=== PATIENT | female | born 1960 | race African-American/Black ===

== ENCOUNTER 2019-02-14 21:55 | Inpatient (IN) | payer MEDICARE ==
[~2019-02-14 21:55] MED LIST: ISOVUE-370 76%-LOCM 1 ML ONE
--- NOTE | 2019-02-14 23:16 | CT ---
CT ABDOMEN AND PELVIS WITH IV CONTRAST: 02/14/19 HISTORY: Fever, diarrhea, nausea with no vomiting. FINDINGS: The lung bases are clear. The liver demonstrates decreased attenuation compared to the spleen consist ent with fatty infiltration. No calcified gallstones are seen. The spleen, pancreas, and adrenal glan ds are normal. There are cysts in the right kidney. There is milk of calcium a 3.4 cm left parapelvic cyst. No hydroureteronephrosis otherwise seen on either side. No calculi is seen in the ureters or t he urinary bladder. No free air, free fluid, or lymphadenopathy seen in the abdomen or pelvis. A normal appearing appendi x is seen. The small bowel loops are not abnormally dilated. There are vascular calcifications without evidence of aneurysmal dilatation of the abdominal aorta. T here are degenerative changes in the spine. The pt is post hysterectomy. IMPRESSION: 1. Fatty liver. 2. Right renal cysts. 3. Left parapelvic cyst with milk of calcium. POS: [facility]
[2019-02-14] MEDS ORDERED: Ondansetron PF 4 MG/2 ML Vial ONE (23:25)
[2019-02-15 00:42] LABS: ALT (SGPT) 234 U/L (8-55); AST (SGOT) 494 U/L (5-34); Albumin 3.5 g/dL (3.5-5.0); Alkaline Phosphatase 93 U/L (40-150); Anion Gap 16 mmol/L (10-20); BUN (Urea Nitrogen) 10 mg/dL (9.8-20.1); Bilirubin, Total 0.5 mg/dL (0.2-1.2); Calc. Creatinine Clearance 0 mL/min (70-130); Calcium 7.7 mg/dL (7.8-10.44); Carbon Dioxide 19 mmol/L (22-29); Chloride 106 mmol/L (98-107); Estimated GFR-MDRD Greater than 90; Globulin 3.5 g/dL (2.4-3.5); Glucose 151 mg/dL (70-105); Potassium 3.6 mmol/L (3.5-5.1); Sodium 137 mmol/L (136-145)
[2019-02-15 00:43] LABS: Acetaminophen Less than 6.0 mcg/mL (10.0-30.0); Alcohol Less than 10 mg/dL (Less than 10); Salicylate Less than 8.0 mg/dL (15.0-30.0)
[2019-02-15] MEDS ORDERED: Piperacillin/Tazobactam 3.375 GM VIAL ONE (01:34)
[2019-02-15] MEDS ORDERED: Ondansetron ODT 4 MG TAB SL PRN (04:50)
[2019-02-15] MEDS ORDERED: Sodium Chloride 0.9% 1,000 ML IV SCH ×2 (04:50→07:45)
[2019-02-15] MEDS ORDERED: Ondansetron PF 4 MG/2 ML Vial IVP PRN ×2 (04:50→07:32)
[2019-02-15] MEDS ORDERED: Ketorolac Tromethamine 30 MG/ML VIAL IVP SCH (06:00)
[2019-02-15] MEDS ORDERED: Loratadine 10 MG TAB PO PRN (07:32)
[2019-02-15] MEDS ORDERED: Zolpidem Tartrate 5 MG TAB PO PRN (07:32)
[2019-02-15] MEDS ORDERED: Ondansetron ODT 4 MG TAB PO PRN (07:32)
[2019-02-15] MEDS ORDERED: Cepastat Lozenges 1 LOZ PO PRN (07:32)
[2019-02-15] MEDS ORDERED: Senokot S 8.6-50 MG TAB PO PRN (07:32)
[2019-02-15] MEDS ORDERED: hydrALAZINE 20 MG/ML VIAL SLOW IVP PRN (07:32)
[2019-02-15] MEDS ORDERED: Calcium Carbonate 500 MG ChewTAB PO PRN (07:32)
[2019-02-15] MEDS ORDERED: Bisacodyl 10 MG SUPP PR PRN (07:32)
[2019-02-15] MEDS ORDERED: Meclizine HCl 25 MG TAB PO PRN (07:32)
[2019-02-15] MEDS ORDERED: Dextrose 5% in Water 1,000 ML IV PRN (07:32)
[2019-02-15] MEDS ORDERED: Acetaminophen 325 MG TAB PO PRN (07:32)
[2019-02-15] MEDS ORDERED: HumaLOG 300 UNITS/3 ML VIAL SC PRN ×2 (07:32)
[2019-02-15] MEDS ORDERED: Diabetic Tussin 200 MG/10 ML UDCUP PO PRN (07:32)
[2019-02-15] MEDS ORDERED: Eucerin (Mineral Oil/Petrolatum,White) 30 gm Jar TOP PRN (07:32)
[2019-02-15] MEDS ORDERED: Artificial Tear Sol 15 ML BOT EA EYE PRN (07:32)
[2019-02-15] MEDS ORDERED: Sodium Chloride 0.65% Nasal 44 ML BOT EA NARE PRN (07:32)
[2019-02-15] MEDS ORDERED: Loperamide HCl 2 MG CAP PO PRN (07:32)
[2019-02-15] MEDS ORDERED: Dextrose 50% Abboject 50 ML SYRINGE SLOW IVP PRN (07:32)
[2019-02-15] MEDS: Doxycycline 100 MG CAP PO SCH ×2 (08:41→21:58)
[2019-02-15] MEDS: Famotidine 20 MG TAB PO SCH ×2 (08:41→21:58)
[2019-02-15] MEDS: cefTRIAXone\\ROCEPHIN 1 GM in Sodium Chloride 0.9% 100 ML IVPB SCH (08:41)
[2019-02-15] MEDS: Enoxaparin Sodium 40 MG/0.4 ML SYRINGE SC SCH (08:42)
[2019-02-15] MEDS: Aspirin 81 mg Enteric Coated Tablet PO SCH (08:42)
[2019-02-15 09:27] LABS: HBCM Index 0.05 S/CO (0-0.79); HBSAg Index 0.32 S/CO (0-0.99); HIV (1/2) Antibody/Antigen Non-Reactive (NonReactive); HIV 1/2 INDEX 0.16 S/CO (<1.00); Hep A IgM AB Non-Reactive (NonReactive); Hep A IgM S/CO 0.33 S/CO (0-0.79); Hep B Surf Ag Non-Reactive S/CO (NonReactive); Hep C IgG Ab Non-Reactive (NonReactive); Hep C Index 0.11 S/CO (0-0.79); Hepatitis B Core IgM Abs Non-Reactive (NonReactive)
[2019-02-15 12:28] VITALS: BMI 32.5
[2019-02-15] MEDS: NS 0.9% w/ 20 MEQ KCL 1,000 ML/1,000 ML BAG IV SCH ×2 (13:04→16:24)
--- NOTE | 2019-02-15 13:43 | HP ---
PRIMARY CARE PHYSICIAN: Neftaly El MD REASON FOR ADMISSION: Sepsis. HISTORY OF PRESENT ILLNESS: A 58-year-old female who initially went to [facility] for evaluation of fever. The patient reports that she has fever since February 07, 2019. She reports that all symptoms started with diarrhea. She was having liquidy loose bowel movement without any pus or blood. She was not having any abdominal pain. She was feeling nausea, but no vomiting. She was also having fever with chills intermittently, since then the major temperature at home, which was maximum 103. She was trying Tylenol everyday basis for her fever, but her fever was not responding. The patient was also evaluated by her primary care physician. She went to emergency room yesterday because she was feeling more bad and that is why she was evaluated at [facility], where she was found with elevated LFT. The patient had abdominal ultrasound and CT abdomen and pelvis, which did not show any acute process other than fatty liver. The patient denies any right upper quadrant pain. She denies any belching, dyspepsia, or fullness in the stomach. She denies any constipation. She denies any melena or hematochezia. She denies any recent travel or sick exposure. She denies any skin rash or swelling. REVIEW OF SYSTEMS: CONSTITUTIONAL: Negative for weight loss or gain, ability to conduct usual activities. SKIN: Negative for rash, itching. EYES: Negative for double vision, pain. ENT/MOUTH: Negative for nose bleeding, neck stiffness, pain, tenderness. CARDIOVASCULAR: Negative for palpitations, dyspnea on exertion, orthopnea. RESPIRATORY: Negative for shortness of breath, wheezing, cough, hemoptysis, fever or night sweats. GASTROINTESTINAL: Negative for poor appetite, abdominal pain, heartburn, nausea, vomiting, constipation, or diarrhea. GENITOURINARY: Negative for urgency, frequency, dysuria, nocturia. MUSCULOSKELETAL: Negative for pain, swelling. NEUROLOGIC/PSYCHIATRIC: Negative for anxiety, depression. ALLERGY/IMMUNOLOGIC: Negative for skin rash, bleeding tendency. Please see my HPI for pertinent positives and negatives. All other review of systems reviewed and negative except as mentioned in HPI. PAST MEDICAL HISTORY: Diabetes type 2 and dyslipidemia. PAST SURGICAL HISTORY: Right ear surgery as well as her left ear surgery with tube placement, x2, and hysterectomy. PAST PSYCHIATRIC HISTORY: Reviewed and negative. ALLERGIES: NO KNOWN DRUG ALLERGIES. SOCIAL HISTORY: The patient lives at home with family. No history of tobacco, alcohol, or illicit drug abuse. CURRENT HOME MEDICATIONS: 1. Metformin 500 mg twice daily. 2. Zocor 40 mg p.o. at bedtime. 3. Bactrim DS one tablet twice daily. 4. Meclizine 25 mg 3 times daily. 5. Zoloft 4 mg as needed. 6. Aspirin 81 mg p.o. daily. EMERGENCY ROOM COURSE: The patient has received Zosyn, IV fluid, and Zofran. FAMILY HISTORY: No family history of coronary artery disease, stroke, or cancer. PHYSICAL EXAMINATION: VITAL SIGNS: On arrival, blood pressure 121/89, pulse 90, respiratory rate 18, temperature 99, and saturation 95% on room air. Weight 202 pounds. While in the hospital, the patient was having maximum temperature 102.8. GENERAL: The patient is currently alert, awake, no obvious acute distress. HEENT: Head; normocephalic, atraumatic. Eyes; pupils round, reactive to light. Extraocular muscle intact. ENT, oropharynx within normal limits. Moist mucous membranes. No oral lesion. No pharyngeal erythema. No exudate. NECK: Supple. No JVD. No thyromegaly. No carotid bruit. No jugular venous distention. LUNGS: Clear to auscultation without any rhonchi or rales. CARDIAC: S1, S2. Regular without any murmur. ABDOMEN: Soft and benign without any tenderness. No organomegaly. No Cosme sign. No suprapubic tenderness. BACK: Unremarkable. No CVA tenderness. EXTREMITIES: Upper extremities, passive movement of all joints are normal. Lower extremities, no edema. Good distal pulsation. SKIN: No skin rash. HEMATOLOGICAL SYSTEM: No lymphadenopathy. NEUROLOGIC: Nonfocal examination. SIGNIFICANT LABS: Stool for infection workup including rapid parasite screen, Campylobacter, Escherichia coli O157, and shiga toxin negative. Influenza A and B negative. CBC; WBC 2.1, hemoglobin 10.4, platelets 321 with bandemia. INR 1.0. BMP; sodium 131, potassium 3.9, chloride 98, carbon dioxide 23, BUN 13, creatinine 0.81, glucose 183, and calcium 8.1. LFT; AST 689, ALT 279, alkaline phosphatase 102, albumin 3.9. Lactic acid 1.1. Urinalysis, leukocyte esterase small. Serum drug screen negative. Hepatitis profile negative. ASSESSMENT AND PLAN: Impression: 1. Sepsis. Source of infection is unknown. The patient has fever of unknown origin for about 1 week. The patient's stool study is negative for any infection. Her urinalysis is not showing any classic evidence of infection, but she does have suspected calculus in dilated left kidney. The patient does not have any CVA tenderness. Her chest x-ray is not obtained which we will obtain today, though the patient does not have any respiratory symptoms. At this point, we will consult Dr. Ott, infectious doctor for assisting management. We will follow up on blood and urine culture results. Meanwhile, we will start with IV fluid 100 mL/h and Rocephin and doxycycline. 2. Diabetes type 2. We will continue with insulin as per sliding scale protocol. Diabetic diet will be given. 3. Dyslipidemia. We will hold on statin therapy because of abnormal LFT. 4. Deep venous thrombosis prophylaxis. Lovenox 40 mg subcu daily. 5. GI prophylaxis. Pepcid 20 mg p.o. b.i.d. 6. Hypokalemia. We will replace potassium with IV fluid. 7. Obesity with BMI 32. Dietary education given. Weight loss education given. CODE STATUS: The patient is full code. The patient does not have any surrogate decision maker. DISPOSITION PLAN: Based on clinical course, we are expecting the patient's stay in hospital more than 2 midnights. Plan of care discussed with the patient in detail. Job ID: [id number]
[2019-02-15 16:31] LABS: Syphilis Antibody Nonreactive (Nonreactive); Syphilis Antibody Index 0.08 S/CO (<1.00 Non-Reactive)
--- NOTE | 2019-02-15 23:29 | CON ---
DATE OF CONSULTATION: 02/15/2019 REASON FOR CONSULTATION: Fever and abnormal liver function tests. HISTORY OF PRESENT ILLNESS: A 58-year-old patient who has a history of type 2 diabetes and hyperlipidemia, presented to the emergency room initially on February 10 with fever 102, weakness, nausea, and one episode of loose stool. She was having some aches and pains and had been taking Tylenol at home. She also has a history of "sebaceous cysts" in the upper back which were reportedly drained spontaneously over the past few days. This had been managed with Bactrim and she had been scheduled for excision of the cyst. The initial ER visit showed normal temperatures throughout. She appeared in no distress. There is some tenderness in the abdomen, mostly in the epigastric region. She had a diagnosis of vertigo, had been given Levaquin and Rocephin 1 dosage and was also prescribed Zofran and meclizine and discharged home. Four days later, she is back in the emergency room pretty much of the same symptoms with ongoing fevers. This time, diarrhea has become more pronounced and continued to take Tylenol and apparently a pretty heavy dosing schedule certainly more than the 4 g per day recommended. At this time, there is evidence of elevated liver function tests. [facility] was contacted and she was given N-acetylcysteine and the patient was transferred. She was then seen at the ER at the [facility] and admitted. Since admission, she has been given IV Rocephin and she has noticed overall improvement and diarrhea has subsided. She is not vomiting anymore, unable to tolerate fluids and food for the first time. No headaches. No visual symptoms, sore throat, odynophagia, or dysphagia. No cough, sputum production, or chest pain. The abdominal pain has improved. Diarrhea has subsided. No back pain. No joint symptoms or skin disorder. PAST MEDICAL HISTORY: Type 2 diabetes and hyperlipidemia. PAST SURGICAL HISTORY: and hysterectomy. SOCIAL HISTORY: Never smoker. No alcoholic beverage use. ALLERGIES: NONE. CURRENT MEDICATIONS: 1. Tylenol has been prescribed again. 2. Ecotrin. 3. Dulcolax. 4. Ceftriaxone. 5. Enoxaparin. 6. Pepcid. 7. Apresoline. 8. Insulin. 9. Loratadine. 10. Ondansetron. 11. Potassium. 12. Zolpidem. PHYSICAL EXAMINATION: VITAL SIGNS: T-max 102.8, she is now 98.5, blood pressure 112/66, pulse 82, respirations 16. SKIN: Shows few areas with telangiectases in the lower extremities. HEENT: No lymphadenopathy. Ocular movements conjugate. Sclerae white. Pupils are equal. Conjunctivae normal. Oral cavity is not remarkable. NECK: Supple. No jugular vein distention. No carotid bruits. No thyromegaly. LUNGS: Symmetric. Clear breath sounds. HEART: S1 and S2, regular rate. No S3 or S4. ABDOMEN: Soft, not distended or tender. No ascites. No bladder distention. EXTREMITIES: Moves extremities equally. Strength is preserved. Cognitive function appears to be preserved. LABORATORY DATA: Sodium 137, creatinine 0.77, calcium 7.7. AST has decreased from 689 to 494, ALT has decreased from 279 to 234. Bilirubin and alkaline phosphatase have been normal throughout. CK was 113, albumin 3.5. The salicylate, acetaminophen, and plasma alcohol level were undetectable. Hepatitis serologies , syphilis serology, and HIV serology are nonreactive. Abdomen and pelvis CT with fatty liver, renal cysts, and calculus in the distal left renal ginna, nonobstructing. No hydronephrosis was noted. She had a previous MRI from 2016, which showed extensive white matter signal alteration in bilateral cerebral hemispheres. In that opportunity, the possibility of multiple sclerosis was considered. ASSESSMENT: 1. Type 2 diabetes. 2. Febrile illness with diarrhea. 3. Excessive use of acetaminophen for management of symptoms related to this acute illness with concern for hepatotoxicity. 4. Abnormal liver function tests with improvement. 5. Inflamed sebaceous cyst in the back which has drained. DISCUSSION: Differential diagnosis includes transient viral illness either respiratory or, more likely, GI tract (for example: Norovirus infection), which led to the use of excessive amounts of acetaminophen which led to hepatotoxicity and precipitated the current admission. The other possibilities would be bacteremia , particularly associated with the inflamed sebaceous cyst. Other gastrointestinal processes are not likely and the testing has been negative for it. No evidence of other intraabdominal or respiratory tract inflammatory process. We would recommend discontinuation of acetaminophen that has been still used per prescribed in the orders and we will monitor cultures. If they remain negative, eventually discontinue Rocephin, and we will submit respiratory virus PCR panel. Job ID: [id number] [facility]
[2019-02-16] MEDS: NS 0.9% w/ 20 MEQ KCL 1,000 ML/1,000 ML BAG IV SCH ×3 (04:39→22:12)
[2019-02-16] MEDS: cefTRIAXone\\ROCEPHIN 1 GM in Sodium Chloride 0.9% 100 ML IVPB SCH (08:39)
[2019-02-16] MEDS: Doxycycline 100 MG CAP PO SCH ×2 (08:40→22:11)
[2019-02-16] MEDS: Famotidine 20 MG TAB PO SCH ×2 (08:41→22:11)
[2019-02-16] MEDS: Aspirin 81 mg Enteric Coated Tablet PO SCH (08:41)
[2019-02-16] MEDS: Enoxaparin Sodium 40 MG/0.4 ML SYRINGE SC SCH (08:42)
[2019-02-16 11:12] LABS: Hemoglobin 9.8 g/dL (12.0-16.0); Mean Corpuscular HGB CONC 30.8 g/dL (32.0-36.0); Mean Corpuscular Hemoglobin 27.7 pg (27.0-31.0); Mean Corpuscular Volume 89.8 fL (78.0-98.0); Mean Platelet Volume 7.5 fL (7.4-10.4); Platelet Count 419 thou/uL (130-400); RBC Distribution Width 13.3 % (11.5-14.5); Red Blood Cell (RBC) Count 3.54 mill/uL (4.20-5.40); White Blood Cell (WBC) Count 3.9 thou/uL (4.8-10.8)
[2019-02-16 11:26] LABS: ALT (SGPT) 190 U/L (8-55); AST (SGOT) 364 U/L (5-34); Albumin 3.6 g/dL (3.5-5.0); Alkaline Phosphatase 96 U/L (40-150); Anion Gap 14 mmol/L (10-20); BUN (Urea Nitrogen) Less than 4 mg/dL (9.8-20.1); Bilirubin, Total 0.5 mg/dL (0.2-1.2); Calc. Creatinine Clearance 127 mL/min (70-130); Calcium 8.2 mg/dL (7.8-10.44); Carbon Dioxide 21 mmol/L (22-29); Chloride 106 mmol/L (98-107); Estimated GFR-MDRD Greater than 90; Globulin 3.6 g/dL (2.4-3.5); Glucose 136 mg/dL (70-105); Potassium 3.7 mmol/L (3.5-5.1); Protein, Total 7.2 g/dL (6.0-8.3); Sodium 137 mmol/L (136-145)
[2019-02-16 11:43] LABS: Hypochromia SLIGHT = 6-15 cells (100X) (0-5/hpf); Lymphocytes 63 % (21-51); MDiff Complete? YES; Monocytes 17 % (0-10); Neutrophil 17 % (42-75); Platelet Morphology Comment Appears Decreased; Reactive Lymphocytes 3 % (0-10)
--- NOTE | 2019-02-16 12:43 | PDOC.PN ---
- Subjective Encounter Start Date: 02/16/19 Encounter Start Time: 08:00 Patient seen and examined. No new complaints. No overnight events - Objective Resuscitation Status - Order Detail: 02/15/19 07:28 Resuscitation Status Routine Resuscitation Status: FULL: Full Resuscitation MAR Reviewed: Yes Vital Signs & Weight: Vital Signs (12 hours) Temp Pulse Resp BP Pulse Ox 02/16/19 11:00 98.8 F 80 18 130/71 02/16/19 07:00 99.4 F 81 14 114/72 96 02/16/19 05:35 99.5 F 82 16 116/68 02/16/19 01:45 99.0 F 85 18 108/69 96 Weight Admit Weight 202 lb Weight 202 lb I&O: 02/15/19 02/16/19 02/17/19 06:59 06:59 06:59 Intake Total 602 2230 Balance 602 2230 Result Diagrams: 02/16/19 10:52 02/16/19 10:52 Additional Labs: Accuchecks 02/16/19 02/16/19 02/15/19 10:53 07:38 20:23 POC Glucose 132 H 119 H 140 H 02/15/19 16:21 POC Glucose 134 H Phys Exam - Physical Examination Constitutional: NAD HEENT: PERRLA, moist MMs, sclera anicteric Neck: no JVD, supple Respiratory: no wheezing, no rales, no rhonchi Cardiovascular: RRR, no significant murmur, no rub Gastrointestinal: soft, non-tender, no distention, positive bowel sounds Musculoskeletal: no edema, pulses present Neurological: non-focal, normal sensation, moves all 4 limbs Lymphatic: no nodes Psychiatric: normal affect, A&O x 3 Skin: no rash, normal turgor Dx/Plan (1) Abnormal LFTs Code(s): R94.5 - ABNORMAL RESULTS OF LIVER FUNCTION STUDIES Status: Acute (2) Sepsis Code(s): A41.9 - SEPSIS, UNSPECIFIED ORGANISM Status: Acute (3) Diabetes type 2, controlled Code(s): E11.9 - TYPE 2 DIABETES MELLITUS WITHOUT COMPLICATIONS Status: Chronic (4) Dyslipidemia Code(s): E78.5 - HYPERLIPIDEMIA, UNSPECIFIED Status: Chronic (5) Obesity (BMI 30.0-34.9) Code(s): E66.9 - OBESITY, UNSPECIFIED Status: Chronic - Plan cont current plan of care * medication reviewed as below * symptomatic treatment * follow culture. Review of Systems - Review of Systems ENT: negative: Ear Pain, Ear Discharge, Nose Pain, Nose Discharge, Nose Congestion, Mouth Pain, Mouth Swelling, Throat Pain, Throat Swelling, Other Respiratory: negative: Cough, Dry, Shortness of Breath, Hemoptysis, SOB with Excertion, Pleuritic Pain, Sputum, Wheezing Cardiovascular: negative: chest pain, palpitations, orthopnea, paroxysmal nocturnal dyspnea, edema, light headedness, other Gastrointestinal: negative: Nausea, Vomiting, Abdominal Pain, Diarrhea, Constipation, Melena, Hematochezia, Other Genitourinary: negative: Dysuria, Frequency, Incontinence, Hematuria, Retention , Other Musculoskeletal: negative: Neck Pain, Shoulder Pain, Arm Pain, Back Pain, Hand Pain, Leg Pain, Foot Pain, Other - Medications/Allergies Allergies/Adverse Reactions: Allergies Allergy/AdvReac Type Severity Reaction Status Date / Time No Known Allergies Allergy Verified 02/15/19 03:35 Medications: Current Medications Acetaminophen (Tylenol) 650 mg PO Q4H PRN PRN Reason: Headache/Fever/Mild Pain (1-3) Artificial Tears (Liquitears 15ml Bottle) 2 drop EA EYE PRN PRN PRN Reason: Dry Eyes Aspirin (Ecotrin) 81 mg PO DAILY [facility] Last Admin: 02/16/19 08:41 Dose: 81 mg Bisacodyl (Dulcolax) 10 mg [place] DAILYPRN PRN PRN Reason: Constipation Calcium Carbonate (Tums) 1,000 mg PO Q4H PRN PRN Reason: Heartburn or Indigestion Dextrose/Water (Dextrose 50%) 25 gm SLOW IVP PRN PRN PRN Reason: Hypoglycemia Doxycycline Hyclate (Vibramycin) 100 mg PO BID [facility] Last Admin: 02/16/19 08:40 Dose: 100 mg Enoxaparin Sodium (Lovenox) 40 mg SC 0900 [facility] Last Admin: 02/16/19 08:42 Dose: 40 mg Famotidine (Pepcid) 20 mg PO BID [facility] Last Admin: 02/16/19 08:41 Dose: 20 mg Glucagon (Glucagon) 1 mg IM PRN PRN PRN Reason: Hypoglycemia Guaifenesin (Robitussin Sf) 200 mg PO Q4H PRN PRN Reason: Cough Hydralazine HCl (Apresoline) 10 mg SLOW IVP Q4H PRN PRN Reason: SBP > 180 and HR < 70 Ceftriaxone Sodium 1 gm/ (Sodium Chloride) 100 mls @ 200 mls/hr IVPB Q24HR [facility] Last Admin: 02/16/19 08:39 Dose: 100 mls Dextrose/Water (D5w) 1,000 mls @ 0 mls/hr IV .Q0M PRN PRN Reason: Hypoglycemia Potassium Chloride/Sodium Chloride (Ns 0.9% W/ 20 Meq Kcl) 1,000 ml in 1,000 mls @ 75 mls/hr IV .[id number] [facility] Last Admin: 02/16/19 10:19 Dose: Not Given Insulin Human Lispro (Humalog) 0 units SC .MODERATE SLIDING SC PRN PRN Reason: Moderate Correctional Scale Last Admin: 02/15/19 11:38 Dose: 2 units Insulin Human Lispro (Humalog) 0 units SC .BEDTIME SLIDING SC PRN PRN Reason: Bedtime Correctional Scale Loperamide HCl (Imodium) 2 mg PO PRN PRN PRN Reason: Diarrhea/Loose Stools Loratadine (Claritin) 10 mg PO DAILYPRN PRN PRN Reason: Sinus Symptoms Meclizine HCl (Antivert) 25 mg PO DAILY PRN PRN Reason: Dizziness Mineral Oil/White Petrolatum (Eucerin Cream) 0 gm TOP BIDPRN PRN PRN Reason: Dry Skin Ondansetron HCl (Zofran Odt) 4 mg PO Q6H PRN PRN Reason: Nausea/Vomiting Ondansetron HCl (Zofran) 4 mg IVP Q6H PRN PRN Reason: Nausea/Vomiting Senna/Docusate Sodium (Senokot S) 2 tab PO BID PRN PRN Reason: Constipation Sodium Chloride ([place] Nasal [place] 0.65%) 0 ml EA NARE QIDPRN PRN PRN Reason: Nasal Congestion Throat Lozenges (Cepastat Lozenges) 1 keira PO Q2H PRN PRN Reason: Sore Throat Zolpidem Tartrate (Ambien) 5 mg PO HSPRN PRN PRN Reason: Insomnia
[2019-02-17 07:38] LABS: ALT (SGPT) 153 U/L (8-55); AST (SGOT) 230 U/L (5-34); Albumin 3.3 g/dL (3.5-5.0); Alkaline Phosphatase 83 U/L (40-150); Anion Gap 13 mmol/L (10-20); BUN (Urea Nitrogen) Less than 4 mg/dL (9.8-20.1); Bilirubin, Total 0.5 mg/dL (0.2-1.2); Calc. Creatinine Clearance 133 mL/min (70-130); Calcium 8.2 mg/dL (7.8-10.44); Carbon Dioxide 22 mmol/L (22-29); Chloride 110 mmol/L (98-107); Estimated GFR-MDRD Greater than 90; Glucose 116 mg/dL (70-105); Protein, Total 6.3 g/dL (6.0-8.3); Sodium 141 mmol/L (136-145)
[2019-02-17 07:41] LABS: Band 2 % (5-11); Eosinophils 1 % (0-10); Hemoglobin 8.9 g/dL (12.0-16.0); Lymphocytes 74 % (21-51); MDiff Complete? YES; Mean Corpuscular HGB CONC 30.8 g/dL (32.0-36.0); Mean Corpuscular Hemoglobin 27.8 pg (27.0-31.0); Mean Corpuscular Volume 90.3 fL (78.0-98.0); Mean Platelet Volume 7.2 fL (7.4-10.4); Monocytes 10 % (0-10); Neutrophil 12 % (42-75); Platelet Count 455 thou/uL (130-400); RBC Distribution Width 13.2 % (11.5-14.5); Red Blood Cell (RBC) Count 3.19 mill/uL (4.20-5.40)
[2019-02-17] MEDS: Aspirin 81 mg Enteric Coated Tablet PO SCH (08:26)
[2019-02-17] MEDS: Famotidine 20 MG TAB PO SCH (08:26)
[2019-02-17] MEDS: Enoxaparin Sodium 40 MG/0.4 ML SYRINGE SC SCH (08:27)
[2019-02-17] MEDS: Doxycycline 100 MG CAP PO SCH (08:27)
[2019-02-17] MEDS: cefTRIAXone\\ROCEPHIN 1 GM in Sodium Chloride 0.9% 100 ML IVPB SCH (08:28)
--- NOTE | 2019-02-17 10:09 | PDOC.PN ---
- Subjective Encounter Start Date: 02/17/19 Encounter Start Time: 07:20 Patient seen and examined. No new complaints. No overnight events - Objective Resuscitation Status - Order Detail: 02/15/19 07:28 Resuscitation Status Routine Resuscitation Status: FULL: Full Resuscitation MAR Reviewed: Yes Vital Signs & Weight: Vital Signs (12 hours) Temp Pulse Resp BP Pulse Ox 02/17/19 07:00 98.6 F 80 18 140/90 98 Weight Admit Weight 202 lb Weight 202 lb I&O: 02/16/19 02/17/19 02/18/19 06:59 06:59 06:59 Intake Total 2230 Balance 2230 Result Diagrams: 02/17/19 07:11 02/17/19 07:11 Additional Labs: Accuchecks 02/17/19 02/16/19 02/16/19 07:18 21:32 18:55 POC Glucose 120 H 170 H 139 H 02/16/19 02/16/19 15:45 10:53 POC Glucose 171 H 132 H Phys Exam - Physical Examination Constitutional: NAD HEENT: PERRLA, moist MMs, sclera anicteric Neck: no JVD, supple Respiratory: no wheezing, no rales, no rhonchi Cardiovascular: RRR, no significant murmur, no rub Gastrointestinal: soft, non-tender, no distention, positive bowel sounds Musculoskeletal: no edema, pulses present Neurological: non-focal, normal sensation, moves all 4 limbs Lymphatic: no nodes Psychiatric: normal affect, A&O x 3 Skin: no rash, normal turgor Dx/Plan (1) Abnormal LFTs Code(s): R94.5 - ABNORMAL RESULTS OF LIVER FUNCTION STUDIES Status: Acute (2) Sepsis Code(s): A41.9 - SEPSIS, UNSPECIFIED ORGANISM Status: Acute (3) Diabetes type 2, controlled Code(s): E11.9 - TYPE 2 DIABETES MELLITUS WITHOUT COMPLICATIONS Status: Chronic (4) Dyslipidemia Code(s): E78.5 - HYPERLIPIDEMIA, UNSPECIFIED Status: Chronic (5) Obesity (BMI 30.0-34.9) Code(s): E66.9 - OBESITY, UNSPECIFIED Status: Chronic - Plan cont current plan of care, plan discussed w/ family, continue antibiotics * medication reviewed as below * symptomatic treatment * see discharge summersteve. Review of Systems - Review of Systems ENT: negative: Ear Pain, Ear Discharge, Nose Pain, Nose Discharge, Nose Congestion, Mouth Pain, Mouth Swelling, Throat Pain, Throat Swelling, Other Respiratory: negative: Cough, Dry, Shortness of Breath, Hemoptysis, SOB with Excertion, Pleuritic Pain, Sputum, Wheezing Cardiovascular: negative: chest pain, palpitations, orthopnea, paroxysmal nocturnal dyspnea, edema, light headedness, other Gastrointestinal: negative: Nausea, Vomiting, Abdominal Pain, Diarrhea, Constipation, Melena, Hematochezia, Other Genitourinary: negative: Dysuria, Frequency, Incontinence, Hematuria, Retention , Other Musculoskeletal: negative: Neck Pain, Shoulder Pain, Arm Pain, Back Pain, Hand Pain, Leg Pain, Foot Pain, Other - Medications/Allergies Allergies/Adverse Reactions: Allergies Allergy/AdvReac Type Severity Reaction Status Date / Time No Known Allergies Allergy Verified 02/15/19 03:35 Medications: Current Medications Acetaminophen (Tylenol) 650 mg PO Q4H PRN PRN Reason: Headache/Fever/Mild Pain (1-3) Artificial Tears (Liquitears 15ml Bottle) 2 drop EA EYE PRN PRN PRN Reason: Dry Eyes Aspirin (Ecotrin) 81 mg PO DAILY [facility] Last Admin: 02/17/19 08:26 Dose: 81 mg Bisacodyl (Dulcolax) 10 mg [place] DAILYPRN PRN PRN Reason: Constipation Calcium Carbonate (Tums) 1,000 mg PO Q4H PRN PRN Reason: Heartburn or Indigestion Dextrose/Water (Dextrose 50%) 25 gm SLOW IVP PRN PRN PRN Reason: Hypoglycemia Doxycycline Hyclate (Vibramycin) 100 mg PO BID [facility] Last Admin: 02/17/19 08:27 Dose: 100 mg Enoxaparin Sodium (Lovenox) 40 mg SC 0900 [facility] Last Admin: 02/17/19 08:27 Dose: 40 mg Famotidine (Pepcid) 20 mg PO BID [facility] Last Admin: 02/17/19 08:26 Dose: 20 mg Glucagon (Glucagon) 1 mg IM PRN PRN PRN Reason: Hypoglycemia Guaifenesin (Robitussin Sf) 200 mg PO Q4H PRN PRN Reason: Cough Hydralazine HCl (Apresoline) 10 mg SLOW IVP Q4H PRN PRN Reason: SBP > 180 and HR < 70 Ceftriaxone Sodium 1 gm/ (Sodium Chloride) 100 mls @ 200 mls/hr IVPB Q24HR [facility] Last Admin: 02/17/19 08:28 Dose: 100 mls Dextrose/Water (D5w) 1,000 mls @ 0 mls/hr IV .Q0M PRN PRN Reason: Hypoglycemia Potassium Chloride/Sodium Chloride (Ns 0.9% W/ 20 Meq Kcl) 1,000 ml in 1,000 mls @ 75 mls/hr IV .[id number] [facility] Last Admin: 02/16/19 22:12 Dose: 1,000 mls Insulin Human Lispro (Humalog) 0 units SC .MODERATE SLIDING SC PRN PRN Reason: Moderate Correctional Scale Last Admin: 02/15/19 11:38 Dose: 2 units Insulin Human Lispro (Humalog) 0 units SC .BEDTIME SLIDING SC PRN PRN Reason: Bedtime Correctional Scale Loperamide HCl (Imodium) 2 mg PO PRN PRN PRN Reason: Diarrhea/Loose Stools Loratadine (Claritin) 10 mg PO DAILYPRN PRN PRN Reason: Sinus Symptoms Meclizine HCl (Antivert) 25 mg PO DAILY PRN PRN Reason: Dizziness Mineral Oil/White Petrolatum (Eucerin Cream) 0 gm TOP BIDPRN PRN PRN Reason: Dry Skin Ondansetron HCl (Zofran Odt) 4 mg PO Q6H PRN PRN Reason: Nausea/Vomiting Ondansetron HCl (Zofran) 4 mg IVP Q6H PRN PRN Reason: Nausea/Vomiting Senna/Docusate Sodium (Senokot S) 2 tab PO BID PRN PRN Reason: Constipation Sodium Chloride ([place] Nasal [place] 0.65%) 0 ml EA NARE QIDPRN PRN PRN Reason: Nasal Congestion Throat Lozenges (Cepastat Lozenges) 1 keira PO Q2H PRN PRN Reason: Sore Throat Zolpidem Tartrate (Ambien) 5 mg PO HSPRN PRN PRN Reason: Insomnia
--- NOTE | 2019-02-17 10:32 | DIS ---
DATE OF ADMISSION: 02/15/2019 DATE OF DISCHARGE: 02/17/2019 PRIMARY CARE PHYSICIAN: Dr. Neftaly El. DISCHARGE DISPOSITION: Home. PRIMARY DISCHARGE DIAGNOSES: 1. Sepsis, resolved. 2. Abnormal LFT. SECONDARY DISCHARGE DIAGNOSES: Obesity, dyslipidemia, diabetes type 2. PRIMARY PROCEDURE/OPERATION: None. RADIOLOGICAL INVESTIGATION: Abdomen and pelvis CT scan was unremarkable. SIGNIFICANT LABORATORY DATA: WBC 4.0, hemoglobin 8.9, platelet 455. Sodium 141, potassium 4.0, BUN 13, creatinine 0.65. AST 230, ALT 155, alkaline phosphatase 83, albumin 3.3. Serum drug screen negative. Hepatitis profile, HIV negative. Syphilis negative. DISCHARGE MEDICATIONS: 1. Doxycycline 100 mg p.o. b.i.d. for 5 days. 2. Metformin 500 mg p.o. b.i.d. 3. Zocor 40 mg p.o. daily. 4. Zanaflex 4 mg q.8 hourly p.r.n. 5. Meclizine 25 mg daily p.r.n. 6. Aspirin 81 mg p.o. daily. CONTRAINDICATION: None. CODE STATUS: Full code. INPATIENT [employer] OPERATOR: Dr. Ott. TEST RESULT PENDING ON DISCHARGE: None. ALLERGIES: NO KNOWN DRUG ALLERGIES. DISCHARGE PLAN: Post hospital, the patient will follow up with primary care physician as well as Dr. Ott as instructed. HOSPITAL COURSE: A 58-year-old female, who was admitted by me. Please see my H and P for further details. The patient was having on and off cough, which was started with loose bowel movement about a week ago and she was trying Tylenol for fever at home. The patient was relatively taking more than usual her Tylenol. On arrival to the emergency room this time, the patient was having fever and she was found with abnormal LFT. We did CT abdomen and pelvis, which was unremarkable. The patient was not having any right upper quadrant pain, which we did not suspect any gallbladder related etiology as alkaline phosphatase was normal and clinical examination was not consistent. We did ID consult and recommended respiratory virus panel. Her respiratory viral panel was positive for only rhinovirus. Her blood culture is negative. Her stool for infection workup is negative. At this point, the patient is doing much better. While in hospital, she had fever, but by the time of discharge, her fever subsided. She was tolerating p.o. well, ambulatory, and she expressed her wish to go home. Dr. Ott also cleared her for discharge. I have seen and examined this patient at bedside today and plan of care discussed with the patient and her family member. All review of systems reviewed with her and negative. Discharge instruction given. Job ID: [id number]
[2019-02-17 11:54] VITALS: BP 139/91; TEMP 98.4
== END 2019-02-17 11:40 | disposition home or self-care (01) | DRG 872 ==
LOC: ERS 21:55 → 3SE 02-15 01:25 → OBSVTOIN 02-15 07:32
PROVIDERS: ADMIT Family Medicine; ATTEND Family Medicine
DX: A41.9 Sepsis, unspecified organism (principal); E11.9 Type 2 diabetes mellitus without complications; B97.89 Other viral agents as the cause of diseases classified elsewhere; R94.5 Abnormal results of liver function studies; E78.5 Hyperlipidemia, unspecified; E87.6 Hypokalemia; E66.9 Obesity, unspecified; Z68.32 Body mass index [BMI] 32.0-32.9, adult; L72.3 Sebaceous cyst; Z79.84 Long term (current) use of oral hypoglycemic drugs; Z79.82 Long term (current) use of aspirin; Z79.899 Other long term (current) drug therapy
CPT/HCPCS: 36415; 36416; 74177; 80053; 80074; 80307; 82550; 83630; 85025; 86780; 87040; 87045; 87046; 87328; 87329; 87389; 87449; 87633; 87804; 87899; 96361; 96365; 96375; J0360; J0696; J1650; J1885; J2405; J2543; J3480; J3490